=== PATIENT | male | born 1950 | race Caucasian/White ===

== ENCOUNTER 2017-06-22 06:11 | Outpatient (CLI) | payer OTHER ==
[~2017-06-22] VITALS: Ht 182.9 cm; Wt 102.1 kg
[~2017-06-22 06:11] MED LIST: OMEP40CA2 PO
[2017-06-22] MEDS ORDERED: NS 1,000 ML IV SCH (07:00)
[2017-06-22] MEDS ORDERED: fentaNYL 100 MCG/2 ML INJECTION (J3010) As Ordered ONE (07:29)
[2017-06-22] MEDS ORDERED: PROPOFOL 200 MG/20 ML VIAL As Ordered ONE (07:47)
--- NOTE | 2017-06-22 08:07 | ROOR ---
Patient Name: Sourav Gallego Procedure Date: 06/22/2017 7:31 AM Date of : 1950 Age: 66 Room: [facility] Gender: Male Note Status: Finalized Procedure: Upper GI endoscopy Indications: Surveillance for malignancy due to personal history of Cordon's esophagus Providers: Enrique VÁSQUEZ MD Referring MD: 1. No Referring Physician 1. No Referring Physician, Admin. Requesting Provider: Medicines: Monitored Anesthesia Care Complications: No immediate complications. Procedure: Pre-Anesthesia Assessment: - The heart rate, respiratory rate, oxygen saturations, blood pressure, adequacy of pulmonary ventilation, and response to care were monitored throughout the procedure. The Endoscope was introduced through the mouth, and advanced to the second part of duodenum. The upper GI endoscopy was accomplished without difficulty. The patient tolerated the procedure well. Findings: There were esophageal mucosal changes secondary to established long-segment Cordon's disease present in the lower third of the esophagus. The maximum longitudinal extent of these mucosal changes was 4 cm in length. Mucosa was biopsied with a cold forceps for histology randomly from 31 to 35 cm from the incisors. A total of 4 specimen bottles were sent to pathology. Multiple 5 to 10 mm semi-sessile polyps with no stigmata of recent bleeding were found in the gastric fundus and in the gastric body. The polyp was removed with a cold snare. Polyp resection was incomplete, and the resected tissue was partially retrieved. A small hiatal hernia was present. The exam of the stomach was otherwise normal. The examined duodenum was normal. 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 The mucosa is smooth, no nodularity. Multiple biopsies done and placed in 4 separate bottles. - Multiple fundic gland/hyperplastic appearing gastric polyps. The largest polyps removed, Polyp resection was incomplete, and the resected tissue was partially retrieved. - Small hiatal hernia. - Normal examined duodenum. Recommendation: - Telephone endoscopist for pathology results in 2 weeks. - Use a proton pump inhibitor twice a day indefinitely. - Await pathology report on todays biopsies. Provided the biopsies are benign/ free of dysplasia, plan for surveillance of barretts esophagus in 3 years. Enrique Vásquez MD Enrique VÁSQUEZ MD 06/22/2017 8:07:20 AM This report has been signed electronically. Number of Addenda: 0 Note Initiated On: 06/22/2017 7:31 AM Estimated Blood Loss: Estimated blood loss: none.
[2017-06-22 08:20] VITALS: BP 98/56
== END 2017-06-22 08:35 | disposition home or self-care (01) ==
LOC: M OPP 06:11
PROVIDERS: ATTEND Internal Medicine Gastroenterology
DX: K22.70 Barrett's esophagus without dysplasia (principal); K31.7 Polyp of stomach and duodenum; K44.9 Diaphragmatic hernia without obstruction or gangrene; K21.9 Gastro-esophageal reflux disease without esophagitis; G47.30 Sleep apnea, unspecified; Z87.891 Personal history of nicotine dependence; Z79.899 Other long term (current) drug therapy
CPT/HCPCS: 43239; 88305; J3010